=== PATIENT | male | born 1945 | race Caucasian/White ===

== ENCOUNTER 2024-09-10 20:48 | Outpatient (REF) | payer MEDICARE, SELFPAY ==
[2024-09-10 22:18] LABS: Abs Immature Grans 0.03 10^3/uL (0.0-0.06); Absolute Basophil Count 0.04 10^3/uL (0.0-0.2); Absolute Eosinophil Count 0.02 10^3/uL (0.0-0.7); Absolute Lymphocyte Count 0.75 10^3/uL (1.2-3.4); Absolute Monocyte Count 1.16 10^3/uL (0.1-0.8); Basophils % 0.4 %; Eosinophils % 0.2 %; HCT 43.3 % (40.0-50.0); HGB 14.4 g/dL (13.5-17.5); Immature Grans % 0.3 %; Lymphocytes % 6.8 %; MCH 30.7 pg (27.0-33.0); MCHC 33.3 % (32.0-36.0); MCV 92 fL (80-95); MPV 9.9 fL (8.0-11.0); Monocytes % 10.5 %; Neutrophils % 81.8 %; Platelet Count 229 10^3/uL (130-400); RBC 4.69 10^6/uL (4.36-5.78); RDW 13.4 % (11.8-14.1); RDW-SD 45.8 fL; WBC 11.03 10^3/uL (4.4-10.8)
[2024-09-10 22:25] LABS: Absolute Neutrophil Count 9.02 10^3/uL (1.2-6.7)
[2024-09-10 22:28] LABS: COVID-19 PCR Negative (Negative); Influenza A PCR Negative (Negative); Influenza B PCR Negative (Negative); RSV PCR Negative (Negative)
[2024-09-10 22:29] LABS: Source Nasopharynx
[2024-09-10 22:33] LABS: ALT 42 U/L (16-63); AST 25 U/L (15-37); Albumin 3.3 g/dL (3.4-5.0); Alkaline Phosphatase 124 U/L (46-116); Anion Gap 10.8 mmol/L (3-11); BUN 19 mg/dL (7-18); Bilirubin, Total 0.59 mg/dL (0.2-1.0); CO2 25.2 mmol/L (21.0-32.0); Chloride 103 mmol/L (98-107); Estimated GFR 77.04 (mL/min/1.73m2); Glucose 96 mg/dL (74-106); Potassium 4.6 mmol/L (3.5-5.1); Sodium 139 mmol/L (136-145); Total Protein 6.3 g/dL (6.4-8.2)
[2024-09-10 22:40] LABS: Bacteria Few HPF (Negative); C & S Indicated? C&S Done As Ordered; Crystals Negative HPF (Negative); Epithelial Cells Negative HPF (Negative); Mucus Moderate (Negative); RBC 0-2 HPF (0-2)
[2024-09-12 12:33] LABS: Lyme Ab w Rflx to Lyme Confirm Negative (Negative)
[2024-09-14 14:39] LABS: Anaplasma phagocytophilum Negative (Negative); B. miyamotoi PCR Negative (Negative); Babesia divergens/MO-1 Negative (Negative); Babesia duncani Negative (Negative); Babesia microti Negative (Negative); Ehrlichia chaffeensis Negative (Negative); Ehrlichia ewingii/canis Negative (Negative); Ehrlichia muris eauclairensis Negative (Negative)
== END 2024-09-10 20:49 | disposition home or self-care (01) ==
LOC: LBN 20:48
PROVIDERS: Visit Provider Nurse Practitioner Family
DX: R50.9 Fever, unspecified (principal)
CPT/HCPCS: 80053; 87637; 87798; 81015; 82043; 82570; 85025; 86618; 87086

== ENCOUNTER 2024-09-12 12:25 | Outpatient (CLI) | payer MEDICARE, SELFPAY ==
--- NOTE | 2024-09-12 | DI.US_ITS ---
Exam(s) US RENAL EXAM: US RENAL CLINICAL HISTORY: HEMATURIA R31.9 TECHNIQUE: Ultrasound of both kidneys performed using standard protocol. COMPARISON: No exams were available for comparison FINDINGS: RIGHT KIDNEY: Measures 12 cm in length. There are 2 adjacent cysts in the inferior pole region measuring 6 x 5.8 an d 3.6 x 2.7 cm. Normal cortical thickness and corticomedullary differentiation .No solid masses No intrarenal calculi nor hydronephrosis. LEFT KIDNEY: Measures 12 cm in length. No cysts evident. Normal cortical thickness and corticomedullary different iaion. No solids masses. No intrarenal calculi nor hydonephrosis. URINARY BLADDER: Prevoid volume is 125 cc Postvoid volume is 45 cc Bladder wall is minimally thickened No evidence of bladder mass nor diverticuli. Ureterovesical jets: Both identified and appear symmetrical IMPRESSION: 1. No significant ultrasound findings in the kidneys. There are 2 adjacent benign cyst in the infer ior pole region of the right kidney with measurements as above. There are no solid lesions in either kidney 2. No hydronephrosis. DATA REPOSITORY:
--- OUTSIDE RECORDS SUMMARY | 2024-09-12 12:27 | XMS_ITS | Clinical Summary ---
Author Organization [facility] Address [address] [place] [address] Care Team Providers Care Sewing Machine Operator Name Role Phone Unavailable Primary Care Provider Unavailabl e Encounters Date Type Department Care Team Description 09/11/2024 Lab Requisition [facility] Pathology & Laboratory Medicine - [facility] [address] [place] [address] Outr Resulting Lab, Provider from Last 3 Months Social History Tobacco Use Types Packs/Day Years Used Date Smoking Tobacco: Never Assessed Sex and Gender Information Value Date Recorded Sex Assigned at Not on file Gender Identity Not on file Sexual Orientation Not on file Plan of Treatment Not on file
--- OUTSIDE RECORDS SUMMARY | 2024-09-12 12:27 | XMS_ITS | Referral Summary ---
Author Organization [facility] Address [address] [place] [address] Care Team Providers Care Residential Support Specialist Name Role Phone Unavailable Primary Care Provider Unavailabl e Encounters Date Type Department Care Team Description 09/11/2024 Lab Requisition [facility] Pathology & Laboratory Medicine - [facility] [address] [place] [address] Outr Resulting Lab, Provider from Last 3 Months Social History Tobacco Use Types Packs/Day Years Used Date Smoking Tobacco: Never Assessed Sex and Gender Information Value Date Recorded Sex Assigned at Not on file Gender Identity Not on file Sexual Orientation Not on file Plan of Treatment Not on file
--- OUTSIDE RECORDS SUMMARY | 2024-09-12 12:27 | XMS_ITS | Encounter Summary ---
Author Organization [facility] Address [address] [place] [address] Care Team Providers Care Electrotyper Name Role Phone Unavailable Primary Care Provider Unavailabl e Encounter Details Date Type Department Care Team (Late st Contact Info) Description 09/11/2024 Lab Requisition [facility] Pathology & Laboratory Medicine - [facility] [address] [place] [address] Outr Resulting Lab, Provider Social History Tobacco Use Types Packs/Day Years Used Date Smoking Tobacco: Never Assessed Sex and Gender Information Value Date Recorded Sex Assigned at Not on file Gender Identity Not on file Sexual Orientation Not on file documented as of this encounter Plan of Treatment Pending Results Name Type Priority Associated Diagnoses Date /Time LYME AB Lab Routine 09/10/2024 19: 00 EDT documented as of this encounter Visit Diagnoses Not on filedocumented in this encounter
== END 2024-09-12 12:45 ==
PROVIDERS: Visit Provider Nurse Practitioner Family
DX: R31.9 Hematuria, unspecified (principal)
CPT/HCPCS: 76770

== ENCOUNTER 2024-09-14 12:31 | Outpatient (REF) | payer MEDICARE, SELFPAY ==
[2024-09-14 14:47] LABS: Abs Immature Grans 0.14 10^3/uL (0.0-0.06); Absolute Basophil Count 0.05 10^3/uL (0.0-0.2); Absolute Eosinophil Count 0.09 10^3/uL (0.0-0.7); Absolute Lymphocyte Count 1.03 10^3/uL (1.2-3.4); Absolute Monocyte Count 0.95 10^3/uL (0.1-0.8); Absolute Neutrophil Count 6.42 10^3/uL (1.2-6.7); Basophils % 0.6 %; HCT 42.8 % (40.0-50.0); HGB 14.1 g/dL (13.5-17.5); Immature Grans % 1.6 %; Lymphocytes % 11.9 %; MCH 30.7 pg (27.0-33.0); MCHC 32.9 % (32.0-36.0); MCV 93 fL (80-95); MPV 9.7 fL (8.0-11.0); Monocytes % 10.9 %; Platelet Count 273 10^3/uL (130-400); RDW 13.7 % (11.8-14.1); WBC 8.68 10^3/uL (4.4-10.8)
[2024-09-14 15:16] LABS: TSH 0.67 uIU/mL (0.36-3.74)
[2024-09-14 15:26] LABS: Bilirubin Negative (Negative); Blood Negative (Negative); Clarity Clear (Clear); Glucose Negative (Negative); Ketones Negative (Negative); Leukocyte Esterase Negative (Negative); Nitrite Negative (Negative); Urobilinogen 0.2 mg/dL (Up to 0.2); pH 6.5 (5-8)
[2024-09-14 22:16] LABS: T3,Free 4.2 pg/mL (2.8-5.3)
== END 2024-09-14 12:32 | disposition home or self-care (01) ==
LOC: NCHCN 12:31
PROVIDERS: PCP Nurse Practitioner Family; Visit Provider Nurse Practitioner Family
DX: R50.9 Fever, unspecified (principal)
CPT/HCPCS: 81003; 84154; 84439; 84443; 84481; 85025; 87086

== ENCOUNTER 2024-09-20 02:09 | Outpatient (CLI) | payer MEDICARE, SELFPAY ==
--- NOTE | 2024-09-20 | DI.US_ITS ---
APPROVED REPORT EXAM: Comprehensive 2D, Doppler, and color-flow Echocardiogram Patient Location: Out-Patient Cable Engineer Outside Plant: Scarlett Guillen RDCS (AE) Indications: Unspecified atrial fibrillation Other Information Study Quality: Adequate Conclusion Normal left ventricular wall thickness and chamber size. Ejection fraction is 55%. Wall motion is n ormal Normal right ventricular size and function Left atrium is mildly dilated. Right atrial size is normal Aortic valve is sclerotic and trileaflet. There is trace aortic regurgitation. Mean aortic valve gr adient is 8 mmHg, no hemodynamically significant aortic stenosis Mitral annular calcification. Mild mitral regurgitation Estimated right ventricular systolic pressure is 20 mmHg Ascending aorta measures 3.59 cm Wall motion Left Ventricle The left ventricle is normal size. The left ventricular systolic function is normal. The left ventric ular ejection fraction is within the normal range. There is normal left ventricular wall thickness. T here is normal LV segmental wall motion. There is no ventricular septal defect visualized. LVEF is 55 %. Right Ventricle The right ventricle is normal size. The right ventricular systolic function is normal. Atria Left atrium is mildly dilated. The right atrium size is normal. The interatrial septum is intact with no evidence for an atrial septal defect. Aortic Valve The Aortic valve is sclerotic. Aortic valve is trileaflet. There is no aortic valvular stenosis. Trac e aortic regurgitation. Mitral Valve Mild mitral annular calcification. No evidence of mitral valve stenosis. Mild mitral regurgitation. Tricuspid Valve The tricuspid valve is normal in structure. There is no tricuspid valve stenosis. Trace tricuspid reg urgitation. The RVSP is 20.5 mmHg. Pulmonic Valve The pulmonary valve is normal in structure. There is no pulmonic valvular stenosis. Trace pulmonic re gurgitation. Great Vessels The aortic root is normal in size. The ascending aorta is mildly dilated. Aortic arch is normal in ca liber. IVC is normal in size and collapses >50% with inspiration. Pericardium There is no pericardial effusion. 2D Dimensions IVSD d PLAX 0.92 cm M: 0.6-1.2 Ao Root d 3.00 cm M: 3.1 - 3.7 LVPW d PLAX 0.90 cm M: 0.6 - 1.2 Ao Asc Diam d 3.59 cm M: 2.6 - 3.4 LVID d PLAX 4.40 cm M: 4.2 - 5.8 LVDs 3.20 cm M: 2.5 - 4.0 LV EF Teichholz 54.0 % FS 27.72 % LV EDV (Teich) 87.5 mL LV ESV (Teich) 40.3 mL M-Mode TAPSE 2.23 cm (M/F) >1.7 Auto EF LV EDV A4C 122.8 mL LV EDV A2C 102.2 mL LV EDV BP 112.8 mL LV ESV A4C 61.5 mL LV ESV A2C 49.5 mL LV ESV BP 54.9 mL LVEF(%) A4C 49.9 % LVEF(%) A2C 51.6 % LVEF(%) BP 51.3 % LV SV A4C 61.3 ml LV SV A2C 52.7 ml LV SV BP 57.9 ml LV CO A4C 5.5 L/min LV CO A2C 5.4 L/min LV CO BP 5.5 L/min HR A4C 90.46 BPM HR A2C 102.56 BPM LV EDV Index (BP) LA Volume LA Length A4C 5.5 cm LA Length A2C 5.2 cm LA Area A4C s 21.27 cm2 LA Area A2C s 21.61 cm2 LA Vol A4C A-L 70.15 mL LA Vol A2C A-L 75.87 mL LA Vol Biplane A-L 74.7 mL LA Vol/BSA A4C A-L LA Vol/BSA A2C A-L LA Vol/BSA BP A-L 37.3 mL/m2 LA Vol A4C MOD 63.1 mL LA Vol A2C MOD 69.2 mL LA Vol BP MOD 67.3 mL RA Volume RA Area A4C 16.5 cm2 RA ESV A4C (A-L) 39.0mL RA Vol/BSA A4C A-L RA Length A4C 5.9 cm RA ESV A4C (MOD) 37.1mL LV Diastology MV E' medial 0.107 (>0.07 m/s) MV E Vmax 1.06 (0.4-1.3 m/s) MV E' lateral 0.107 (>0.1 m/s) Aortic Valve AoV Vmax 1.87 m/s LVOT Vmax 0.79 m/s AoV Peak Grad 41.5 mmHg LVOT Peak Grad 2.5 mmHg AoV Area (Vmax) 1.37 cm2 LVOT VTI 0.138 m AoV VTI 0.351 m LVOT Mean Grad 1.4 mmHg AoV Mean Jayme. 1.34 m/s LVOT SV 44.93 mL AoV Mean Grad 8.1 mmHg LVOT Diam s 2.00 cm AoV Area (VTI) 1.28 cm2 AV Regurg Peak Gr. 13.97 mmHg Velocity Ratio 0.42 AR Decel [place] 1.6m/sec2 AR DT 2597 msec AR PHT 753 msec AR Vmax 4.15 m/s Mitral Valve MV Vmax TIPS 1.14 m/s MV Mean Grad 2.3 (<2mmHg) MV Area PHT 4.10 cm2 MV VTI 0.235 m Pulmonary Valve PV Vmax 1.06 (0.5-1.5 m/s) RVOT Vmax 0.69 m/s PV Peak Grad 4.5 mmHg RVOT Peak Gr. 1.9 mmHg PV Mean Jayme 0.70 m/s RVOT VTI 0.128 m PV Mean Grad 2.3 mmHg RVOT Mean Gr. 1.2 mmHg Tricuspid Valve RA Pressure 3.00 mmHg TR Vmax 2.09 m/s TV S' 0.14 m/s TR Peak Grad 17.4 mmHg RVSP (TR) 20.5 mmHg
== END 2024-09-20 02:29 ==
LOC: DI 02:10
PROVIDERS: PCP Nurse Practitioner Family; Visit Provider Nurse Practitioner Family
DX: I48.91 Unspecified atrial fibrillation (principal)
CPT/HCPCS: 93306

== ENCOUNTER 2024-09-20 10:21 | Outpatient (CLI) | payer MEDICARE, SELFPAY | END 2024-09-20 10:22 | disposition home or self-care (01) | PROVIDERS: PCP Nurse Practitioner Family; Visit Provider Nurse Practitioner Family | DX: I48.0 Paroxysmal atrial fibrillation (principal) | CPT/HCPCS: 93246 ==

== ENCOUNTER 2024-09-21 16:24 | Outpatient (REF) | payer MEDICARE, SELFPAY ==
[2024-09-21 21:09] LABS: Microalb ug/mg Crea 15.9 ug/mg Cr
== END 2024-09-21 16:25 | disposition home or self-care (01) ==
LOC: NCHCN 16:24
PROVIDERS: PCP Nurse Practitioner Family; Visit Provider Family Medicine
DX: I10 Essential (primary) hypertension (principal)
CPT/HCPCS: 82043; 82570

== ENCOUNTER 2024-10-11 09:08 | Outpatient (CLI) | payer MEDICARE, SELFPAY ==
--- NOTE | 2024-10-11 09:29 | CER_ITS ---
Date of service: 10/11/24 Time of Service: 09:29 Cardiac Event Recorder Referring Provider:: Anneliese Benedict Indications:: Atrial fibrillation Cardiac Event Note: This is a cardiac event monitor. Patient was monitored for 14 days rhythm t hroughout was atrial fibrillation with an average heart rate of 96. Minimum was 60, maximum 170. There were very rare isolated ventricular ectopic beats. Patient symptoms were reported, correlating with atrial fibrillation rate approximately 115 There was no high-grade AV block, no significant pauses
== END 2024-10-11 09:09 | disposition home or self-care (01) ==
LOC: CARDOPNVT 09:08
PROVIDERS: PCP Nurse Practitioner Family; Visit Provider Internal Medicine Cardiovascular Disease
DX: I48.91 Unspecified atrial fibrillation (principal)
CPT/HCPCS: 93248

== ENCOUNTER → 2024-10-23 14:01 | Outpatient (BNVA) | payer MEDICARE, SELFPAY | PROVIDERS: PCP Nurse Practitioner Family; Referring Provider Nurse Practitioner Family; Visit Provider Urology | DX: N40.1 Benign prostatic hyperplasia with lower urinary tract symptoms (principal); R39.15 Urgency of urination; E29.1 Testicular hypofunction; R97.20 Elevated prostate specific antigen [PSA] | CPT/HCPCS: 99215 ==

== ENCOUNTER 2024-11-29 16:16 | Outpatient (REF) | payer MEDICARE, SELFPAY ==
[2024-11-29 16:47] LABS: TSH (W/Ref FT4) 2.21 uIU/mL (0.36-3.74)
[2024-11-30 18:40] LABS: PSA, Diagnostic 14.2 ng/mL (<=6.5)
== END 2024-11-29 16:17 | disposition home or self-care (01) ==
LOC: NCHCN 16:16
PROVIDERS: PCP Nurse Practitioner Family; Visit Provider Family Medicine
DX: E03.9 Hypothyroidism, unspecified (principal); R97.20 Elevated prostate specific antigen [PSA]
CPT/HCPCS: 84153; 84443

== ENCOUNTER 2024-12-28 08:06 | Outpatient (CLI) | payer MEDICARE, SELFPAY ==
--- NOTE | 2024-12-28 08:00 | RT.EKG_ITS ---
APPROVED REPORT Exam: Resting ECG Reason for Exam: cardiac evaluation Patient Location: O HR:91 bpm ECG Measurements Heart Rate [address] MO [id number] P [id number] QRSd 93 QRS -13 QT 344 T 8 QTc 424 Conclusion Atrial fibrillation...V-rate 70-107, irreg A-activity
== END 2024-12-28 08:07 | disposition home or self-care (01) ==
LOC: DI.CARD 08:07
PROVIDERS: PCP Nurse Practitioner Family; Visit Provider Internal Medicine Cardiovascular Disease
DX: I10 Essential (primary) hypertension (principal); I48.91 Unspecified atrial fibrillation; E78.5 Hyperlipidemia, unspecified
CPT/HCPCS: 93010

== ENCOUNTER → 2024-12-28 12:59 | Outpatient (BNVA) | payer MEDICARE, SELFPAY | PROVIDERS: PCP Nurse Practitioner Family; Referring Provider Nurse Practitioner Family; Visit Provider Internal Medicine Cardiovascular Disease | DX: I48.19 Other persistent atrial fibrillation (principal) | CPT/HCPCS: 93005; 99214 ==

== ENCOUNTER 2025-01-14 10:21 | Inpatient (IN) | payer MEDICARE, SELFPAY ==
[2025-01-14] VITALS (38 sets, daily range): BP systolic 116–169; BP diastolic 68–116; PULSE 72–99; RESP 11–24; TEMP 36.9–37.3; O2SAT 93–98
--- NOTE | 2025-01-14 10:15 | RT.EKG_ITS ---
APPROVED REPORT Exam: Resting ECG Reason for Exam: chest pressure Patient Location: E HR:87 bpm ECG Measurements Heart Rate 87 [address] VT [id number] P [id number] QRSd 97 QRS -12 QT 337 T 0 QTc 405 Conclusion Atrial fibrillation 87 ST elevation III, AVF no stemi
--- NOTE | 2025-01-14 10:30 | DI.RAD_ITS ---
Exam(s) XR PORTABLE CHEST AP EXAM: XR PORTABLE CHEST AP CLINICAL HISTORY: Chest pain TECHNIQUE: 2D digital imaging was performed. COMPARISON: No exams were available for comparison FINDINGS: LUNGS: Clear. No pleural abnormality seen. HEART: Mildly enlarged. AORTA: Normal diameter. BONES: Unremarkable for age. Soft tissues: Unremarkable. IMPRESSION: No acute findings. DATA REPOSITORY: RADIATION DOSE DELIVERED:
[2025-01-14 10:47] LABS: Abs Immature Grans 0.04 10^3/uL (0.0-0.06); Absolute Basophil Count 0.02 10^3/uL (0.0-0.2); Absolute Eosinophil Count 0.03 10^3/uL (0.0-0.7); Absolute Lymphocyte Count 1.76 10^3/uL (1.2-3.4); Absolute Monocyte Count 0.75 10^3/uL (0.1-0.8); Basophils % 0.2 %; Eosinophils % 0.3 %; HCT 46.3 % (40.0-50.0); HGB 15.7 g/dL (13.5-17.5); Immature Grans % 0.5 %; Lymphocytes % 20.2 %; MCH 30.7 pg (27.0-33.0); MCHC 33.9 % (32.0-36.0); MCV 91 fL (80-95); MPV 9.5 fL (8.0-11.0); Monocytes % 8.6 %; Neutrophils % 70.2 %; Platelet Count 232 10^3/uL (130-400); RBC 5.11 10^6/uL (4.36-5.78); RDW 13.9 % (11.8-14.1); RDW-SD 46.6 fL
[2025-01-14 11:10] LABS: ALT 46 U/L (16-63); AST 85 U/L (15-37); Albumin 3.6 g/dL (3.4-5.0); Alkaline Phosphatase 72 U/L (46-116); Anion Gap 6.7 mmol/L (3-11); BUN 14 mg/dL (7-18); Bilirubin, Total 0.73 mg/dL (0.2-1.0); CO2 29.3 mmol/L (21.0-32.0); Calcium 9.1 mg/dL (8.5-10.1); Chloride 104 mmol/L (98-107); Estimated GFR 76.56 (mL/min/1.73m2); Glucose 101 mg/dL (74-106); NT-proBNP 1020 pg/mL (<300); Potassium 4.1 mmol/L (3.5-5.1); Sodium 140 mmol/L (136-145); Total Protein 6.8 g/dL (6.4-8.2)
[2025-01-14 11:11] LABS: Troponin I 7995 ng/L (<or=76)
[2025-01-14] MEDS: Clopidogrel 300 MG TAB PO (11:44)
[2025-01-14] MEDS: Heparin in 0.45% NaCl 25,000 UNIT/250 ML BAG 10 UNIT IVINF (11:45)
[2025-01-14 11:53] LABS: INR 1.1 (0.9-1.1); PTT Activated 28.1 sec (20.6-30.2); Prothrombin Time 10.9 sec (9.1-11.1)
[2025-01-14 12:03] LABS: Troponin I 8540 ng/L (<or=76)
[2025-01-14] MEDS: Metoprolol 12.5 MG TAB PO (12:06)
[2025-01-14] MEDS: Aspirin 325 MG TAB PO (12:06)
[2025-01-14] MEDS: Atorvastatin 40 MG TAB 80 MG PO (12:08)
[2025-01-14 12:59] LABS: TSH 0.92 uIU/mL (0.36-3.74)
--- NOTE | 2025-01-14 14:01 | W.PC.ACHO ---
Registration Status: Primary Language: Preferred Language: ED Information & Data Chief Complaint Chest Pain 01/14/25 10:49 Chief Complaint Chest Pain 01/14/25 10:27 Triage Note pt felt chest pressure, back 01/14/25 10:27 pain and a sensation in right arm yesterday after anabaptist. today no s/s. hx afib. Medical / Surgical History (Last Reviewed 12/28/24 @ 13:10 by Lou Tidwell MD) Fever Asymptomatic microscopic hematuria Hypogonadism in male Constipation (Last Reviewed 12/28/24 @ 13:10 by Lou Tidwell MD) S/P hip replacement History of bilateral knee replacement Most Recent Vital Signs Temperature 36.9 C 01/14/25 10:27 Pulse 88 01/14/25 13:00 Pulse 78 01/14/25 13:30 Respiratory Rate 14 01/14/25 13:30 Respiratory Effort Normal 01/14/25 10:49 Respiratory Depth Normal 01/14/25 10:49 Respiratory Pattern Normal 01/14/25 10:49 Blood Pressure 169/86 H 01/14/25 12:16 Blood Pressure Mean 114 01/14/25 12:16 Pulse Oximetry 96 01/14/25 13:00 Oxygen Delivery Method Room Air 01/14/25 10:27 Oxygen Flow Rate 0 01/14/25 10:27 Pain Level 0 01/14/25 13:39 Allergies atorvastatin (From Lipitor) Allergy (Verified 01/14/25 11:06) Other (See Comment) muscle cramping Active Medications Generic Name Dose Route Start Last Admin Trade Name Freq PRN Reason Stop Dose Admin Heparin Sodium/Sodium Chloride 25,000 unit in 250 mls @ 10 mls/hr 01/14/25 11:30 01/14/25 11:45 IVINF 1,000 units/hr INFUSION VAUGHN 10 mls/hr Administration Protocol 1,000 UNITS/HR Metoprolol Tartrate 12.5 mg 01/14/25 12:00 01/14/25 12:06 Metoprolol 12.5 Mg Tab PO 12.5 mg Q6H VAUGHN Administration IV IV Catheter Type [Left Saline Lock Antecubital] IV Catheter Gauge [Left 18 Antecubital] Diet Orders Category Date Time Status Heart Healthy Eating [DIET] Nutrition 01/14/25 Dinner Active Diagnostics 01/14/25 01/14/25 01/14/25 Range/Units 13:27 11:35 10:40 WBC 8.70 (4.4-10.8) 10^3/uL RBC 5.11 (4.36-5.78) 10^6/uL Hgb 15.7 (13.5-17.5) g/dL Hct 46.3 (40.0-50.0) % MCV 91 (80-95) fL MCH 30.7 (27.0-33.0) pg MCHC 33.9 (32.0-36.0) % RDW 13.9 (11.8-14.1) % Plt Count 232 (130-400) 10^3/uL MPV 9.5 (8.0-11.0) fL Immature Gran % 0.5 % Neutrophils % 70.2 % Lymphocytes % 20.2 % Monocytes % 8.6 % Eosinophils % 0.3 % Basophils % 0.2 % Nucleated RBC % 0.0 (0.0-0.3) % Absolute Neutrophils 6.10 (1.2-6.7) 10^3/uL Absolute Lymphocytes 1.76 (1.2-3.4) 10^3/uL Absolute Monocytes 0.75 (0.1-0.8) 10^3/uL Absolute Eosinophils 0.03 (0.0-0.7) 10^3/uL Absolute Basophils 0.02 (0.0-0.2) 10^3/uL PT 10.9 (9.1-11.1) sec INR 1.1 (0.9-1.1) APTT 28.1 (20.6-30.2) sec Sodium 140 (136-145) mmol/L Potassium 4.1 (3.5-5.1) mmol/L Chloride 104 (98-107) mmol/L Carbon Dioxide 29.3 (21.0-32.0) mmol/L Anion Gap 6.7 (3-11) mmol/L BUN 14 (7-18) mg/dL Creatinine 1.0 (0.70-1.30) mg/dL Est GFR (CKD-EPI 2020) 76.56 (mL/min/1.73m2) Glucose 101 (74-106) mg/dL Calcium 9.1 (8.5-10.1) mg/dL Total Bilirubin 0.73 (0.2-1.0) mg/dL AST 85 H (15-37) U/L ALT 46 (16-63) U/L Alkaline Phosphatase 72 (46-116) U/L Troponin I Pending 8540 H* 7995 H* (<or=76) ng/L NT-Pro-B Natriuret Pep 1020 H (<300) pg/mL Total Protein 6.8 (6.4-8.2) g/dL Albumin 3.6 (3.4-5.0) g/dL TSH 0.92 (0.36-3.74) uIU/mL Intake and Output - 24 Hour Total 01/14/25 10:21 thru 01/14/25 10:27 Weight 86.183 kg Falls Risk Assessment History of Falls No History 01/14/25 10:49 Contributing Factors No Factors 01/14/25 10:49 Ambulatory Aids Independent 01/14/25 10:49 Tubes/Lines None 01/14/25 10:49 Gait Evaluation No gait disturbance 01/14/25 10:49 Cognition No cognitive impairment 01/14/25 10:49 Fall Total Score 0 01/14/25 10:49 Level of Risk Standard/Low Risk 01/14/25 10:49 v v v v v v v v v Sending and/or Receiving Nurses: Please use comment section below to note any information pertinent to the patient hand-off not included above. Information / Comments: Report received from: Ronda Gonzalez RN All questions answered
[2025-01-14 14:14] LABS: Troponin I 10272 ng/L (<or=76)
--- NOTE | 2025-01-14 16:10 | ED.GENADUL_ITS ---
Discharge Plan Disposition Patient Disposition: Admit to [facility] Condition: Serious Discharge Details Chief Complaint: Chest Pain Clinical Impression: Acute non-ST elevation myocardial infarction (NSTEMI), A-fib, Essential hypertension, Chronic anticoagulation Admit Date/Time: 01/14/25 12:04 Admit Provider: Emeka Dietz Attending Provider: Emeka Dietz Primary Care Provider: Lata Harkins ED Provider: Grecia Morgan Discharge Data Discharge Date/Time-TO BE ENTERED AT DEPARTURE: 01/14/25 14:18 HPI General Date/Time Provider Initiated Documentation: 01/14/25 10:31 . Limitations to Documentation: no limitations . Information obtained by: patient . HPI Narrative: 79-year-old gentleman with past medical history of A-fib on Eliquis, hypertension presents for evaluation of chest pain. He reports that yesterday after restorationism he noted some substernal discomfort. It did not seem to bother him too much. He did some cross-country skiing in the afternoon. He reports that he seemed very winded more so than to be expected where he has had previously. He also had worsening of this substernal chest pain. He reports that it bothered him throughout the night and kept him awake. He kept trying to sit up because he thought that he had some indigestion. He reports that around 3 AM it went away. Since that time he has not had shortness of breath. Denies smoking history, denies DE history, denies diabetes. Related Data Home Medications ?Medication ?Instructions ?Recorded ?Confirmed Bacillus coagulans 10 billion cell 1 cell PO DAILY 09/19/24 01/14/25 capsule,delayed release (Probiotic (B. coagulans)) acetaminophen 500 mg capsule 1,000 mg PO ONCE PRN 09/19/24 01/14/25 amlodipine 5 mg tablet 5 mg PO DAILY 09/19/24 01/14/25 apixaban 5 mg tablet (Eliquis) 5 mg PO BID 09/19/24 01/14/25 cholecalciferol (vitamin D3) 25 25 mcg PO DAILY 09/19/24 01/14/25 mcg (1,000 unit) capsule coenzyme Q10 300 mg capsule (Co 300 mg PO DAILY 09/19/24 01/14/25 Q-10) glucosamine 750 zn-dwwlyvqkice-txx 1 tab PO DAILY 09/19/24 01/14/25 no1 625 mg-C 30 mg-jacob 1 mg tablet losartan 50 mg tablet 50 mg PO DAILY 09/19/24 01/14/25 multivitamin 1 tab PO DAILY 09/19/24 01/14/25 omega 2-tvh-vpa-fish oil 100 1 cap PO DAILY 09/19/24 01/14/25 mg-160 mg-1,000 mg capsule (Fish Oil) omeprazole 20 mg capsule,delayed 20 mg PO DAILY 09/19/24 01/14/25 release polyethylene glycol 3350 17 17 g PO DAILY 09/19/24 01/14/25 gram/dose oral powder (Miralax) prasterone (dhea) 25 mg tablet 25 mg PO DAILY 09/19/24 01/14/25 (DHEA) psyllium husk 0.52 gram capsule 0.52 g PO DAILY 09/19/24 01/14/25 rosuvastatin 40 mg tablet 40 mg PO DAILY 09/19/24 01/14/25 tadalafil 5 mg tablet 5 mg PO DAILY 09/19/24 01/14/25 tamsulosin 0.4 mg capsule 0.8 mg PO DAILY 09/19/24 01/14/25 testosterone cypionate 100 mg/mL 40 mg IM Q4W 09/19/24 01/14/25 intramuscular oil thyroid (pork) 90 mg tablet 90 mg PO DAILY 09/19/24 01/14/25 ([place] Thyroid) metoprolol tartrate 25 mg tablet 25 mg PO DAILY 10/23/24 01/14/25 docusate sodium 100 mg capsule 100 mg PO DAILY 12/28/24 01/14/25 Allergies Allergy/AdvReac Type Severity Reaction Status Date / Time atorvastatin (From Lipitor) Allergy Other (See Verified 01/14/25 11:06 Comment) General Stated Complaint: Chest Pain MARIA ELENA: 2 Exam Narrative Exam Narrative: Review of Systems: All systems reviewed & are unremarkable except as noted in HPI and below Well-developed, no acute distress NCAT PERRL, normal conjunctiva RRR no chest wall tenderness Unlabored respiratory effort clear bilaterally no crackles Nondistended abdomen Extremities w/o edema No rashes or lesions. no focal neurologic deficits Appropriate mood and affect Course Vital Signs Vital signs: Vital Signs Respiratory Rate 15 01/14/25 10:26 Temperature 37.0 C 01/14/25 14:30 Pulse 88 01/14/25 13:00 Pulse 78 01/14/25 13:30 Respiratory Rate 14 01/14/25 13:30 Respiratory Effort Normal, Non-Labored 01/14/25 14:30 Respiratory Depth Normal 01/14/25 14:30 Respiratory Pattern Normal 01/14/25 14:30 Blood Pressure 169/86 H 01/14/25 12:16 Blood Pressure Mean 114 01/14/25 12:16 Pulse Oximetry 96 01/14/25 13:00 Oxygen Delivery Method Room Air 01/14/25 10:27 Oxygen Flow Rate 0 01/14/25 10:27 Pain Level 0 01/14/25 14:30 Lab/Test Results Lab/Test Results: Laboratory Tests Range/Units 01/14/25 01/14/25 10:40 11:35 WBC (4.4-10.8) 10^3/uL 8.70 RBC (4.36-5.78) 10^6/uL 5.11 Hgb (13.5-17.5) g/dL 15.7 Hct (40.0-50.0) % 46.3 MCV (80-95) fL 91 MCH (27.0-33.0) pg 30.7 MCHC (32.0-36.0) % 33.9 RDW (11.8-14.1) % 13.9 Plt Count (130-400) 10^3/uL 232 MPV (8.0-11.0) fL 9.5 Immature Gran % % 0.5 Neutrophils % % 70.2 Lymphocytes % % 20.2 Monocytes % % 8.6 Eosinophils % % 0.3 Basophils % % 0.2 Nucleated RBC % (0.0-0.3) % 0.0 Absolute Neutrophils (1.2-6.7) 10^3/uL 6.10 Absolute Lymphocytes (1.2-3.4) 10^3/uL 1.76 Absolute Monocytes (0.1-0.8) 10^3/uL 0.75 Absolute Eosinophils (0.0-0.7) 10^3/uL 0.03 Absolute Basophils (0.0-0.2) 10^3/uL 0.02 PT (9.1-11.1) sec 10.9 INR (0.9-1.1) 1.1 APTT (20.6-30.2) sec 28.1 Sodium (136-145) mmol/L 140 Potassium (3.5-5.1) mmol/L 4.1 Chloride (98-107) mmol/L 104 Carbon Dioxide (21.0-32.0) mmol/L 29.3 Anion Gap (3-11) mmol/L 6.7 BUN (7-18) mg/dL 14 Creatinine (0.70-1.30) mg/dL 1.0 Est GFR (CKD-EPI 2020) (mL/min/1.73m2) 76.56 Glucose (74-106) mg/dL 101 Calcium (8.5-10.1) mg/dL 9.1 Total Bilirubin (0.2-1.0) mg/dL 0.73 AST (15-37) U/L 85 H ALT (16-63) U/L 46 Alkaline Phosphatase (46-116) U/L 72 Troponin I (<or=76) ng/L 7995 H* 8540 H* NT-Pro-B Natriuret Pep (<300) pg/mL 1020 H Total Protein (6.4-8.2) g/dL 6.8 Albumin (3.4-5.0) g/dL 3.6 TSH (0.36-3.74) uIU/mL 0.92 Medical Decision Making Emergent evaluation of chest pain. Patient has some risk factors including age, hypertension. He does have a history of A-fib and is on Eliquis. He is history is very concerning for an exertional chest pain, his initial EKG was in dependently interpreted: A-fib 87 ST elevations in leads III and aVF, no recip rocal change, no STEMI. The patient was given a full dose aspirin. He does not have any chest pain at this time and has not had any chest pain since 3 AM. High suspicion for cardiac etiology based on his history. Placed on telemetry monitoring. Lab work obtained. No leukocytosis or anemia. Coag factors within normal limits. No electrolyte derangement. His initial BNP was noted to be over 1000. The patient does not have any signs or symptoms concerning for volume overload or acute CHF. No prior history of CHF no available echocardiogram to me. The chest x-ray was reviewed and interpreted, no cardiomegaly pulmonary edema or pleural effusion. The initial troponin level was significantly elevated at 7995. When the troponin level resulted, I initiated Plavix load, high-dose statin, heparin infusion. The patient has not had any persistent return of chest pain. Repeat troponin delta increasing to 8540. An emergent consultation was had with cardiology at [facility]. [facility] does have concerns for the patient and has accepted him as a transfer admission for tomorrow when bed is available for cardiac catheterization. They recommend continued medical management and trending troponins until the patient is able to be transferred for cardiac catheterization. Given that he will not be able to go to [facility] until tomorrow, I have discussed with the hospitalist to keep the patient at this facility until the time of transfer for further management. After the patient had been moved to the ICU, his troponin resulted at 10, 272. Given the significant delta, I did reach back out to cardiology to notify them of this change and also notify the hospitalist. From this point they will be able to manage further disposition. Quality:SDOH Health Related Social Needs: No Data to Display Critical Care Time Critical Care Time Critical Care Time: Yes Total Critical Care Time: 36 Attestation: CRITICAL CARE Upon my evaluation, this patient had a high probability of imminent or life- threatening deterioration due to NSTEMI which required my direct attention, intervention, and personal management. I have personally provided 36 minutes of critical care time exclusive of time spent on separately billable procedures. Time includes review of laboratory data, radiology results, discussion with consultants, and monitoring for potential decompensation. Interventions were performed as documented above [facility] All Active Problems (Updated 01/14/25 @ 16:17 by Grecia Morgan MD) Chronic anticoagulation (Acute) Acute non-ST elevation myocardial infarction (NSTEMI) (Acute) Vitamin D deficiency (Acute) Erectile dysfunction (Acute) Elevated PSA (Acute) GUNNAR (obstructive sleep apnea) (Chronic) Nonulcer dyspepsia (Acute) Lower urinary tract symptoms (LUTS) (Acute) Pain in pelvis (Acute) Hyperlipidemia (Acute) Essential hypertension (Acute) A-fib (Chronic) Hypothyroidism (Chronic) Hypoalbuminemia (Acute) Medical History Fever Asymptomatic microscopic hematuria Hypogonadism in male Constipation Surgical History S/P hip replacement History of bilateral knee replacement Social History Smoking/Tobacco Use Status: Never Smoking risk assessment performed?: Yes Alcohol Intake: current Alcohol Intake frequency: a few times a month Drug use: Never Substance use type: does not use Housing: house Do you feel safe at home: Yes Do you feel safe in your relationship?: Yes PAWSS Have you Been Recently Intoxicated or Drunk Within the Last 30 days?: No Have you Ever Experienced Previous Episodes of Alcohol Withdrawal?: No Have you ever Experienced Withdrawal Seizures?: No Have you ever Experienced Delirium Tremens(DT)s?: No Have you ever Experienced Blackouts?: No Have you ever Combined Alcohol with other Downers within the last 90 days?: No Have you ever Combined Alcohol with any other Substance of Abuse during the last 90 days?: No Positive Blood Alcohol level on Presentation? [PCS.BAL]: No Evidence of Increased Autonomic Activity (i.e. HR>120, tremor, sweating, agitation, nausea)?: No Result: 0
--- NOTE | 2025-01-14 17:10 | W.PM.HP.N ---
Date of service: 01/14/25 Time of Service: 17:11 Assessment and Plan Assessment and plan (1) Acute non-ST elevation myocardial infarction (NSTEMI): Status: Acute Assessment and plan: - admit to ICU - trend troponins, already positive and climbing. however, patient currently hemodynamically stable and asymptomatic - heparin gtt started in ER - ASA 325mg given in ER, continue at 81mg. Plavix 300mg load given in ER - continue Lopressor 25mg PO BID - check fasting lipids, TSH - patient has already been accepted [place] [facility] [place], call transfer center if patient's consider changes for potential expedited transfer (2) A-fib: Status: Chronic Assessment and plan: - currently in NSR - Eliquis held for now while on heparin gtt (3) Hyperlipidemia: Status: Acute Assessment and plan: - check FLP as noted above - continue Crestor 40mg PO daily (4) Essential hypertension: Status: Acute Assessment and plan: - continue outpatient meds as ordered ---> amlodipine 5mg daily, losartan 50mg - metoprolol 25mg BID History of Present Illness History of Present Illness Chief Complaint: chest pain Narrative: This is a 79 yo male with pmhx HTN, hyperlipidemia, rate controlled AF on Eliquis, GERD, ED that presents c/o CP. Patient was seen in ICU with present, both are pleasant and good historians. Patient states he woke up yesterday feeling well, attending [employer] but felt poorly after that. Had marked fatigue along with some vague substernal chest pressure. Denies SOB, palpitations, diaphoresis. [place] that this may have been reflux. He did feel better and went cross-country skiing but again noted weakness and fatigue. Again this resolved after the activity. However, the next morning he woke up and felt that all these symptoms had returned, prompting him to present to the ER. At the time of my evaluation, he was completely asymptomatic. Review of Systems Constitutional Constitutional: Denies daytime sleepiness, Denies excessive sweating, Reports fatigue, Denies fever(s), Denies frequent falls, Denies headache(s), Denies increased appetite, Reports lethargy, Denies night sweats and Reports weakness ENT Ears, Nose, Mouth, and Throat: Denies dysphagia and Denies headache(s) Cardiovascular Cardiovascular: Reports chest pain, Denies pedal edema, Denies edema, Denies claudication, Denies leg edema, Denies lightheadedness, Denies dyspnea and Denies dyspnea on exertion Respiratory Respiratory: Denies cough, Denies dyspnea and Denies dyspnea on exertion Gastrointestinal Gastrointestinal: Denies abdominal pain, Denies change in stool character, Denies constipation, Denies dysphagia, Denies dyspepsia and Denies heartburn Musculoskeletal Musculoskeletal: Reports system reviewed and no additional complaints, except as documented Neurologic Neurologic: Reports system reviewed and no additional complaints, except as documented, Denies frequent falls, Denies headache(s) and Reports weakness Psychiatric Psychiatric: Reports system reviewed and no additional complaints, except as documented Endocrine Endocrine: Denies excessive sweating and Reports fatigue PFSH All Active Problems (Updated 01/14/25 @ 16:17 by Grecia Morgan MD) Chronic anticoagulation (Acute) Acute non-ST elevation myocardial infarction (NSTEMI) (Acute) Vitamin D deficiency (Acute) Erectile dysfunction (Acute) Elevated PSA (Acute) GUNNAR (obstructive sleep apnea) (Chronic) Nonulcer dyspepsia (Acute) Lower urinary tract symptoms (LUTS) (Acute) Pain in pelvis (Acute) Hyperlipidemia (Acute) Essential hypertension (Acute) A-fib (Chronic) Hypothyroidism (Chronic) Hypoalbuminemia (Acute) Medical History Fever Asymptomatic microscopic hematuria Hypogonadism in male Constipation Surgical History S/P hip replacement History of bilateral knee replacement Social History Smoking/Tobacco Use Status: Never Smoking risk assessment performed?: Yes Alcohol Intake: current Alcohol Intake frequency: a few times a month Drug use: Never Substance use type: does not use Housing: house Do you feel safe at home: Yes Do you feel safe in your relationship?: Yes Meds Allergies and Home Medications Allergies Allergy/AdvReac Type Severity Reaction Status Date / Time atorvastatin (From Lipitor) Allergy Other (See Verified 01/14/25 11:06 Comment) Home Medications ?Medication ?Instructions ?Recorded ?Confirmed ?Type Bacillus coagulans 10 billion cell 1 cell PO DAILY 09/19/24 01/14/25 History capsule,delayed release (Probiotic (B. coagulans)) acetaminophen 500 mg capsule 1,000 mg PO ONCE PRN 09/19/24 01/14/25 History amlodipine 5 mg tablet 5 mg PO DAILY 09/19/24 01/14/25 History apixaban 5 mg tablet (Eliquis) 5 mg PO BID 09/19/24 01/14/25 History cholecalciferol (vitamin D3) 25 25 mcg PO DAILY 09/19/24 01/14/25 History mcg (1,000 unit) capsule coenzyme Q10 300 mg capsule (Co 300 mg PO DAILY 09/19/24 01/14/25 History Q-10) glucosamine 750 un-edoygywszpn-wov 1 tab PO DAILY 09/19/24 01/14/25 History no1 625 mg-C 30 mg-jacob 1 mg tablet losartan 50 mg tablet 50 mg PO DAILY 09/19/24 01/14/25 History multivitamin 1 tab PO DAILY 09/19/24 01/14/25 History omega 6-tqe-fmv-fish oil 100 1 cap PO DAILY 09/19/24 01/14/25 History mg-160 mg-1,000 mg capsule (Fish Oil) omeprazole 20 mg capsule,delayed 20 mg PO DAILY 09/19/24 01/14/25 History release polyethylene glycol 3350 17 17 g PO DAILY 09/19/24 01/14/25 History gram/dose oral powder (Miralax) prasterone (dhea) 25 mg tablet 25 mg PO DAILY 09/19/24 01/14/25 History (DHEA) psyllium husk 0.52 gram capsule 0.52 g PO DAILY 09/19/24 01/14/25 History rosuvastatin 40 mg tablet 40 mg PO DAILY 09/19/24 01/14/25 History tadalafil 5 mg tablet 5 mg PO DAILY 09/19/24 01/14/25 History tamsulosin 0.4 mg capsule 0.8 mg PO DAILY 09/19/24 01/14/25 History testosterone cypionate 100 mg/mL 40 mg IM Q4W 09/19/24 01/14/25 History intramuscular oil thyroid (pork) 90 mg tablet 90 mg PO DAILY 09/19/24 01/14/25 History ([place] Thyroid) metoprolol tartrate 25 mg tablet 25 mg PO DAILY 10/23/24 01/14/25 History docusate sodium 100 mg capsule 100 mg PO DAILY 12/28/24 01/14/25 History Exam Const General: cooperative, healthy appearing, comfortable and no acute distress Nutritional Appearance: average body habitus [facility] Head: normocephalic and atraumatic Neck Neck: normal visual inspection Chest Chest: normal inspection of the chest Resp Effort & Inspection: normal respiratory effort Auscultation: clear to auscultation bilaterally, no rales, no rhonchi and no wheezes Cardio Jugular venous pressure: no JVD Rate: regular rate Rhythm: regular rhythm Heart Sounds: S1 normal and S2 normal GI Inspection: normal to inspection Palpation: soft Percussion: normal to percussion Auscultation: normal bowel sounds Skin General skin exam: no rashes or lesions noted Neuro General: patient alert, patient awake and patient oriented x3 Results Labs 01/14/25 10:40 01/14/25 10:40 Labs: Laboratory Results - last 24 hr 01/14/25 01/14/25 01/14/25 10:40 11:35 13:27 WBC 8.70 RBC 5.11 Hgb 15.7 Hct 46.3 MCV 91 MCH 30.7 MCHC 33.9 RDW 13.9 Plt Count 232 MPV 9.5 Immature Gran % 0.5 Neutrophils % 70.2 Lymphocytes % 20.2 Monocytes % 8.6 Eosinophils % 0.3 Basophils % 0.2 Nucleated RBC % 0.0 Absolute Neutrophils 6.10 Absolute Lymphocytes 1.76 Absolute Monocytes 0.75 Absolute Eosinophils 0.03 Absolute Basophils 0.02 PT 10.9 INR 1.1 APTT 28.1 Sodium 140 Potassium 4.1 Chloride 104 Carbon Dioxide 29.3 Anion Gap 6.7 BUN 14 Creatinine 1.0 Est GFR (CKD-EPI 2020) 76.56 Glucose 101 Calcium 9.1 Total Bilirubin 0.73 AST 85 H ALT 46 Alkaline Phosphatase 72 Troponin I 7995 H* 8540 H* 11837 H* NT-Pro-B Natriuret Pep 1020 H Total Protein 6.8 Albumin 3.6 TSH 0.92 Last Vital Signs Temp 37.0 C 01/14/25 14:30 Pulse 92 H 01/14/25 15:01 Resp 18 01/14/25 15:01 BP 122/77 01/14/25 15:01 Pulse Ox 96 01/14/25 15:01 PAWSS Have you Been Recently Intoxicated or Drunk Within the Last 30 days?: No Have you Ever Experienced Previous Episodes of Alcohol Withdrawal?: No Have you ever Experienced Withdrawal Seizures?: No Have you ever Experienced Delirium Tremens(DT)s?: No Have you ever Experienced Blackouts?: No Have you ever Combined Alcohol with other Downers within the last 90 days?: No Have you ever Combined Alcohol with any other Substance of Abuse during the last 90 days?: No Positive Blood Alcohol level on Presentation? [PCS.BAL]: No Evidence of Increased Autonomic Activity (i.e. HR>120, tremor, sweating, agitation, nausea)?: No Result: 0 Time Spent Time spent with Patient: <40 minutes Time was spent: preparing to see the patient(eg.review tests), obtaining and/or reviewing separately otained hiistory, ordering medications,tests, procedures, indepentently interpreting results, counseling the patient and care coordination
--- NOTE | 2025-01-14 18:15 | RT.EKG_ITS ---
APPROVED REPORT Exam: Resting ECG Reason for Exam: chest pain Patient Location: I HR:84 bpm ECG Measurements Heart Rate 84 AXIS MT [id number] P [id number] QRSd 92 QRS -12 QT 374 T 27 QTc 443 Conclusion Atrial fibrillation...V-rate 64-101, irreg A-activity Borderline ST elevation, anterior leads...ST >0.15mV in V1-V4
[2025-01-14 19:29] LABS: PTT Activated 95.2 sec (20.6-30.2)
[2025-01-14] MEDS: Metoprolol 25 MG TAB PO (19:49)
[2025-01-14] MEDS: Normal Saline Flush 10 ML SYR IVP (19:49)
[2025-01-14 21:14] LABS: Troponin I 13616 ng/L (<or=76)
[2025-01-14] MEDS: Acetaminophen 325 MG TAB PO (22:15)
[2025-01-15 01:15] LABS: Troponin I 15102 ng/L (<or=76)
[2025-01-15 02:13] LABS: PTT Activated 48.8 sec (20.6-30.2)
[2025-01-15 03:31] VITALS: BP 133/76; PULSE 70; RESP 19; TEMP 36.6; O2SAT 91
[2025-01-15] MEDS: Heparin in 0.45% NaCl 25,000 UNIT/250 ML BAG 10 UNIT IVINF (06:33)
[2025-01-15 07:04] LABS: Abs Immature Grans 0.03 10^3/uL (0.0-0.06); Absolute Basophil Count 0.05 10^3/uL (0.0-0.2); Absolute Eosinophil Count 0.09 10^3/uL (0.0-0.7); Absolute Lymphocyte Count 2.29 10^3/uL (1.2-3.4); Absolute Monocyte Count 0.79 10^3/uL (0.1-0.8); Absolute Neutrophil Count 4.37 10^3/uL (1.2-6.7); Basophils % 0.7 %; Eosinophils % 1.2 %; HGB 15.3 g/dL (13.5-17.5); Immature Grans % 0.4 %; Lymphocytes % 30.1 %; MCH 30.7 pg (27.0-33.0); MCV 90 fL (80-95); MPV 9.6 fL (8.0-11.0); Monocytes % 10.4 %; Neutrophils % 57.2 %; Platelet Count 220 10^3/uL (130-400); RBC 4.99 10^6/uL (4.36-5.78); RDW 14.1 % (11.8-14.1); RDW-SD 46.8 fL; WBC 7.62 10^3/uL (4.4-10.8)
[2025-01-15 07:17] VITALS: BP 117/81; PULSE 77; RESP 16; TEMP 37.2; O2SAT 94
[2025-01-15] MEDS: amLODIPine 5 MG TAB PO (07:39)
[2025-01-15] MEDS: Docusate Sodium 100 MG CAP PO (07:39)
[2025-01-15] MEDS: Aspirin 81 MG CHEW PO (07:39)
[2025-01-15] MEDS: Lactobacillus Acidophilus CAP 1 CAP PO (07:39)
[2025-01-15] MEDS: Cholecalciferol (Vitamin D3) 1,000 UNIT TAB 1000 UNITS PO (07:40)
[2025-01-15] MEDS: Metoprolol 25 MG TAB PO (07:40)
[2025-01-15] MEDS: Omega-3 Fatty Acids 1000 MG CAP PO (07:40)
[2025-01-15] MEDS: Clopidogrel 75 MG TAB PO (07:40)
[2025-01-15] MEDS: Multivitamin TAB 1 TAB PO (07:40)
[2025-01-15] MEDS: Losartan 50 MG TAB PO (07:41)
[2025-01-15] MEDS: Omeprazole 20 MG CAPCR PO (07:41)
[2025-01-15] MEDS: Rosuvastatin 20 MG TAB 40 MG PO (07:41)
[2025-01-15] MEDS: Tamsulosin 0.4 MG CAPCR 0.8 MG PO (07:41)
[2025-01-15] MEDS: Normal Saline Flush 10 ML SYR IVP (07:43)
--- NOTE | 2025-01-15 09:55 | INITIAL_ITS ---
Date of service: 01/15/25 Time of Service: 09:55 Care Management Initial Assmt Initial Assessment Reason for Hospitalization: NSTEMI Functional Status/Living Situation Patient Presentation: Minesh was awake and sitting up in bed when CM met with him. His Adrianne is sitting in the recliner next to him. Both are pleasant and easy to engage in conversation. He is waiting to transfer to [facility] for a Cardiac Cath. Transfer is pending bed availability. CM will follow. 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 ) Instrumental Activities of Daily Living (ADLs): Independent Medications Medication Management: No Issues/Barriers identified Physical Functioning/Mobility Assistive Device: None Advance Directives Advance Directives: Do you have an Advance Directive: N 01/14/25 10:31 AD On File at [facility]: N 09/19/24 11:20 Date Asked 01/14/25 01/14/25 14:21 AD Date Reviewed COLST On File at [facility] COLST Date Scanned Code Status Resuscitation Status Full Code Insurance Coverage/Financial Issues Insurance: [employer] Care Team Visit Care Team Role Provider Type Lata Harkins Primary Care Provider NON-[facility] STAFF PHYSICIAN Grecia Morgan MD Emergency Provider [facility] STAFF PHYSICIAN Emeka Dietz, Admit Provider [facility] STAFF PHYSICIAN Attending Provider Discharge Anticipated Barriers to Discharge: Medical Status Patient/Family Education Needs: Review discharge instructions, discuss Ask Me Three Transportation: EMS Plan: Transfer to [facility] for a cardiac cath, pending bed availability. EMS will be coordinated by RN caddie supervisor. CM will follow. Social Determinants of Health Screening Social Determinants of Health last assessed: 01/15/25 Will the Patient Participate in the Screening?: Yes Do you worry about having a steady place to live?: no Problems where you live: no known problems In the past 12 months, have you had to go without electric, gas, oil or water in your home?: no Have you or anyone in your house had to go without enough food to eat?: no Has lack of transportation kept you from medical appointments or from doing things needed for daily living?: no Has anyone in your life made you feel unsafe or unsupported?: no How hard is it for you to pay for the very basics like food, housing, medical care, and heating? Would you say it is:: Not hard at all Do you want help finding or keeping work or a job?: I do not need or want help If for any reason you need help with day-to-day activities such as bathing, preparing meals, shopping, managing finances, etc., do you get the help you need?: I don?t need any help How often do you feel lonely or isolated from those around you?: Never Do you speak a language other than Czech at home?: No Does the patient want assistance with any of the above?: No PFSH All Active Problems (Updated 01/14/25 @ 16:17 by Grecia Morgan MD) Chronic anticoagulation (Acute) Acute non-ST elevation myocardial infarction (NSTEMI) (Acute) Vitamin D deficiency (Acute) Erectile dysfunction (Acute) Elevated PSA (Acute) GUNNAR (obstructive sleep apnea) (Chronic) Nonulcer dyspepsia (Acute) Lower urinary tract symptoms (LUTS) (Acute) Pain in pelvis (Acute) Hyperlipidemia (Acute) Essential hypertension (Acute) A-fib (Chronic) Hypothyroidism (Chronic) Hypoalbuminemia (Acute) Medical History Fever Asymptomatic microscopic hematuria Hypogonadism in male Constipation Surgical History S/P hip replacement History of bilateral knee replacement Social History Smoking/Tobacco Use Status: Never Smoking risk assessment performed?: Yes Alcohol Intake: current Alcohol Intake frequency: a few times a month Drug use: Never Substance use type: does not use Housing: house Do you feel safe at home: Yes Do you feel safe in your relationship?: Yes
[2025-01-15 10:17] LABS: Anion Gap 7.8 mmol/L (3-11); BUN 14 mg/dL (7-18); CO2 27.2 mmol/L (21.0-32.0); CREATININE 0.9 mg/dL (0.70-1.30); Calcium 8.8 mg/dL (8.5-10.1); Chloride 105 mmol/L (98-107); Estimated GFR 86.88 (mL/min/1.73m2); Glucose 92 mg/dL (74-106); Magnesium 2.1 mg/dL (1.8-2.4); Potassium 4.1 mmol/L (3.5-5.1); Sodium 140 mmol/L (136-145)
[2025-01-15 10:21] LABS: Troponin I 10428 ng/L (<or=76)
[2025-01-15 10:27] LABS: PTT Activated 102.5 sec (20.6-30.2)
[2025-01-15 10:57] VITALS: BP 98/71; PULSE 83; RESP 18; TEMP 37.4; O2SAT 96
--- NOTE | 2025-01-15 14:13 | NUR.NOTE ---
Nursing Note: was out to the desk asking if pt was getting a bed today at [facility] an hour ago. We called [facility], who could not give any more info at this time, no bed thus far available. Pt's dtr just called and stated that she does not want this to go over 48 hours and is working on a back up plan. She states that she will be calling [facility] to ask them for a bed. HS and Hospitalist notified.
[2025-01-15 15:03] VITALS: BP 110/70; PULSE 83; RESP 16; TEMP 37; O2SAT 94
--- NOTE | 2025-01-15 15:43 | AC.ASSESS ---
Asthma Clinic Visit
--- NOTE | 2025-01-15 15:44 | CHAPLAIN ---
Matt was resting in bed and his , Adrianne, was with him when I visited. 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 Matt and Adrianne are from [place], [place]. He was surprised to learn that he'd had a heart attack, and is now waiting to be transferred to [facility] for a cardiac cath. Both Matt and Adrianne are pleasant and easily engage in conversation. They said they are enjoying serving the adventist in [employer] and liking winter in [place].
--- NOTE | 2025-01-15 16:02 | W.PM.DS.N ---
Date of service: 01/15/25 Time of Service: 16:02 DS: Diagnosis Discharge Diagnosis (1) Acute non-ST elevation myocardial infarction (NSTEMI): Status: Acute (2) A-fib: Status: Chronic (3) Hyperlipidemia: Status: Acute (4) Essential hypertension: Status: Acute Discharge Plan Disposition Patient Disposition: Transfer-Acute Inpatient Care Specific Acute Inpt Facility: [facility] Condition: Stable Discharge Details Reason For Visit: ST elevation; chest pain; elevated Troponin Admit Date/Time: 01/14/25 12:04 Admit Provider: Emeka Dietz Attending Provider: Emeka Dietz Primary Care Provider: Lata Harkins Hospital Course Hospital Course: Per H+P: This is a 79 yo male with pmhx HTN, hyperlipidemia, rate controlled AF on Eliquis, GERD, ED that presents c/o CP. Patient was seen in ICU with present, both are pleasant and good historians. Patient states he woke up yesterday feeling well, attending [employer] but felt poorly after that. Had marked fatigue along with some vague substernal chest pressure. Denies SOB, palpitations, diaphoresis. [place] that this may have been reflux. He did feel better and went cross-country skiing but again noted weakness and fatigue. Again this resolved after the activity. However, the next morning he woke up and felt that all these symptoms had returned, prompting him to present to the ER. At the time of my evaluation, he was completely asymptomatic. Patient had no major issues overnight. Did have an episode of CP (/) earlier in the evening that was self limited, no change on EKG. Was continued on IV heparin overnight. Was also loaded with Plavix (300mg) and continued on 75mg daily. Low dose ASA at 81mg, Metoprolol 25mg BID. Monitor showed AF, rate controlled, c/w his previous history. Labs followed, continued to have troponins trend upwards ([id number] ----> 04184 ---> 24528). Plan today to transfer to [facility] [place]. To be transferred to the service of Dr. Altman. Patient has been kept NPO in anticipation of this procedure. Further w/u and disposition per their services post-procedure. Home Meds and New Rx's Prescriptions: New amlodipine 5 mg Tablet 5 mg PO DAILY Qty: 1 0RF aspirin [Children's Aspirin] 81 mg Tablet,Chewable 81 mg PO DAILY Qty: 1 0RF clopidogrel 75 mg Tablet 75 mg PO DAILY Qty: 1 0RF heparin(porcine) in 0.45% NaCl 25,000 unit/250 mL Parenteral Solution 25,000 unit IV INFUSION Qty: 6000 0RF metoprolol tartrate 25 mg Tablet 25 mg PO BID Qty: 1 0RF Continued docusate sodium 100 mg capsule 100 mg PO DAILY acetaminophen 500 mg capsule 1,000 mg PO ONCE PRN multivitamin Tablet 1 tab PO DAILY amlodipine 5 mg tablet 5 mg PO DAILY cholecalciferol (vitamin D3) 25 mcg (1,000 unit) capsule 25 mcg PO DAILY prasterone (dhea) [DHEA] 25 mg tablet 25 mg PO DAILY Fish Oil 100-160-1,000 mg capsule 1 cap PO DAILY xymochez-ugjer-[id number]-C-jacob-bor [id number] mg tablet 1 tab PO DAILY losartan 50 mg tablet 50 mg PO DAILY psyllium husk 0.52 gram capsule 0.52 g PO DAILY polyethylene glycol 3350 [Miralax] 17 gram/dose powder 17 g PO DAILY omeprazole 20 mg capsule,delayed release(DR/EC) 20 mg PO DAILY Probiotic (B. coagulans) 10 billion cell capsule,delayed release(DR/EC) 1 cell PO DAILY rosuvastatin 40 mg tablet 40 mg PO DAILY tadalafil 5 mg tablet 5 mg PO DAILY tamsulosin 0.4 mg capsule 0.8 mg PO DAILY testosterone cypionate 100 mg/mL oil 40 mg IM Q4W thyroid (pork) [[place] Thyroid] 90 mg tablet 90 mg PO DAILY Discontinued metoprolol tartrate 25 mg tablet 25 mg PO DAILY Co Q-10 300 mg capsule 300 mg PO DAILY Eliquis 5 mg tablet 5 mg PO BID Discharge Instructions Activity:: bedrest Equipment/Supplies:: EMS transfer to [facility] Diet:: currently NPO for procedure Discharge Orders Discharge Orders: Discharge Order (Routine); Ordered 01/15/25 Ordered By: Emeka Dietz DS: Summary Time Spent with Patient providing and/or coordinating discharge services: Greater than 30 minutes Status at Discharge Functional status at discharge: independent ambulation Overall status at discharge: patient is not back to baseline Mental Status: mental status grossly normal Speech and Movement: speech and movement normal Mood: congruent mood Affect: normal affect Quality:SDOH Health Related Social Needs: No Data to Display Exam Psych Mental Status: mental status grossly normal Speech and Movement: speech and movement normal Mood: congruent mood Affect: normal affect DS: Data Vitals/I&O Vitals and I&O: Vital Signs Temperature 37.0 C 01/15/25 15:03 Temperature Source Temporal Artery Scan 01/15/25 15:03 Pulse 83 01/15/25 15:03 Pulse 77 01/14/25 21:02 Respiratory Rate 16 01/15/25 15:03 Respiratory Effort Normal, Non-Labored 01/14/25 14:30 Respiratory Depth Normal 01/14/25 14:30 Respiratory Pattern Normal 01/14/25 14:30 Blood Pressure 110/70 01/15/25 15:03 Blood Pressure Mean 84 01/14/25 21:02 Pulse Oximetry 94 01/15/25 15:03 Oxygen Delivery Method Room Air 01/15/25 15:03 Oxygen Flow Rate 0 01/15/25 15:03 Pain Level 0 01/15/25 07:17 Comment map 89 01/14/25 22:06 Intake & Output 01/14/25 01/15/25 01/15/25 23:59 11:59 23:59 Intake Total 350.833 / 350.833 137.175 / 137.175 Output Total 500 / 500 375 / 575 200 / 575 Balance -149.167 / -149.167 -237.825 / -437.825 -200 / -437.825 Weight 86.1 kg Intake: IV 80.833 / 80.833 137.175 / 137.175 Oral 270 / 270 Output: Urine 500 / 500 375 / 575 200 / 575 Other: Urine Color Straw Yellow Yellow Urine Appearance Clear Clear Clear Urine Odor None Normal Normal Data Completed and Pending Labs on day of discharge: Labs from last 24 hours 01/15/25 01/15/25 01/15/25 16:00 09:16 06:36 WBC 7.62 RBC 4.99 Hgb 15.3 Hct 45.0 MCV 90 MCH 30.7 MCHC 34.0 RDW 14.1 Plt Count 220 MPV 9.6 Immature Gran % 0.4 Neutrophils % 57.2 Lymphocytes % 30.1 Monocytes % 10.4 Eosinophils % 1.2 Basophils % 0.7 Nucleated RBC % 0.0 Absolute Neutrophils 4.37 Absolute Lymphocytes 2.29 Absolute Monocytes 0.79 Absolute Eosinophils 0.09 Absolute Basophils 0.05 APTT Pending 102.5 H* Sodium 140 Potassium 4.1 Chloride 105 Carbon Dioxide 27.2 Anion Gap 7.8 BUN 14 Creatinine 0.9 Est GFR (CKD-EPI 2020) 86.88 Glucose 92 Calcium 8.8 Magnesium 2.1 [place] I [address]441 H* 01/15/25 01/15/25 01/14/25 01:54 00:51 20:44 WBC RBC Hgb Hct MCV MCH MCHC RDW Plt Count MPV Immature Gran % Neutrophils % Lymphocytes % Monocytes % Eosinophils % Basophils % Nucleated RBC % Absolute Neutrophils Absolute Lymphocytes Absolute Monocytes Absolute Eosinophils Absolute Basophils APTT 48.8 H Sodium Potassium Chloride Carbon Dioxide Anion Gap BUN Creatinine Est GFR (CKD-EPI 2020) Glucose Calcium Magnesium Troponin I 01444 H* 64995 H* 01/14/25 17:53 WBC RBC Hgb Hct MCV MCH MCHC RDW Plt Count MPV Immature Gran % Neutrophils % Lymphocytes % Monocytes % Eosinophils % Basophils % Nucleated RBC % Absolute Neutrophils Absolute Lymphocytes Absolute Monocytes Absolute Eosinophils Absolute Basophils APTT 95.2 H* Sodium Potassium Chloride Carbon Dioxide Anion Gap BUN Creatinine Est GFR (CKD-EPI 2020) Glucose Calcium Magnesium Troponin I PFSH All Active Problems (Updated 01/14/25 @ 16:17 by Grecia Morgan MD) Chronic anticoagulation (Acute) Acute non-ST elevation myocardial infarction (NSTEMI) (Acute) Vitamin D deficiency (Acute) Erectile dysfunction (Acute) Elevated PSA (Acute) GUNNAR (obstructive sleep apnea) (Chronic) Nonulcer dyspepsia (Acute) Lower urinary tract symptoms (LUTS) (Acute) Pain in pelvis (Acute) Hyperlipidemia (Acute) Essential hypertension (Acute) A-fib (Chronic) Hypothyroidism (Chronic) Hypoalbuminemia (Acute) Medical History Fever Asymptomatic microscopic hematuria Hypogonadism in male Constipation Surgical History S/P hip replacement History of bilateral knee replacement Social History Smoking/Tobacco Use Status: Never Smoking risk assessment performed?: Yes Alcohol Intake: current Alcohol Intake frequency: a few times a month Drug use: Never Substance use type: does not use Housing: house Do you feel safe at home: Yes Do you feel safe in your relationship?: Yes Time Spent with Patient Time Spent with Patient: <45 minutes Time was spent: preparing to see the patient(eg.review tests), obtaining and/or reviewing separately otained hiistory, ordering medications,tests, procedures, indepentently interpreting results and care coordination
[2025-01-15 16:16] LABS: PTT Activated 77.1 sec (20.6-30.2)
== END 2025-01-15 16:34 | disposition short-term general hospital (02) | DRG 281 ==
LOC: ER 10:32 → ICU 14:21 → MS 21:57
PROVIDERS: Family Medicine; Admitting Provider Hospitalist; Emergency Provider Emergency Medicine; PCP Family Medicine; Responsible Provider Hospitalist; Visit Provider Hospitalist
DX: I21.4 Non-ST elevation (NSTEMI) myocardial infarction (principal); I48.19 Other persistent atrial fibrillation; I10 Essential (primary) hypertension; E87.5 Hyperkalemia; R53.1 Weakness; Z79.01 Long term (current) use of anticoagulants; E55.9 Vitamin D deficiency, unspecified; G47.33 Obstructive sleep apnea (adult) (pediatric); E03.9 Hypothyroidism, unspecified; Z96.653 Presence of artificial knee joint, bilateral
CPT/HCPCS: 00123; 36415; 80048; 80053; 93005; 96365; 96366; 99291; 71045; 83735; 83880; 84443; 84484; 85025; 85610; 85730; 93010; 99221; 99223; 99239; J1644; J3490

== ENCOUNTER → 2025-01-21 13:35 | Outpatient (BNVA) | payer MEDICARE, SELFPAY | PROVIDERS: PCP Family Medicine; Referring Provider Family Medicine; Visit Provider Urology | DX: N42.89 Other specified disorders of prostate (principal); R97.20 Elevated prostate specific antigen [PSA] | CPT/HCPCS: 99213 ==

== ENCOUNTER 2025-01-30 11:09 | Outpatient (RCR) | payer MEDICARE, SELFPAY ==
--- NOTE | 2025-01-30 11:00 | RT.EKG_ITS ---
APPROVED REPORT Exam: Resting ECG Reason for Exam: Baseline Patient Location: O HR:90 bpm ECG Measurements Heart Rate 90 AXIS NE [id number] P [id number] QRSd 107 QRS 26 QT 351 T 29 QTc 430 Conclusion Atrial fibrillation...V-rate 66-106, irreg A-activity Artifact
== END 2025-02-18 23:59 | disposition home or self-care (01) ==
LOC: CR 11:09
PROVIDERS: PCP Family Medicine; Visit Provider Internal Medicine Cardiovascular Disease
DX: I21.4 Non-ST elevation (NSTEMI) myocardial infarction (principal); Z51.89 Encounter for other specified aftercare
CPT/HCPCS: S9472

== ENCOUNTER 2025-02-18 08:07 | Outpatient (RCR) | payer MEDICARE, SELFPAY | END 2025-02-18 23:59 | disposition home or self-care (01) | LOC: CR 08:07 | PROVIDERS: PCP Family Medicine; Visit Provider Internal Medicine Cardiovascular Disease | DX: I21.4 Non-ST elevation (NSTEMI) myocardial infarction (principal); Z51.89 Encounter for other specified aftercare | CPT/HCPCS: S9472 ==

== ENCOUNTER 2025-03-11 09:18 | Outpatient (RCR) | payer MEDICARE, SELFPAY | END 2025-03-20 23:59 | disposition home or self-care (01) | LOC: CR 09:18 | PROVIDERS: PCP Family Medicine; Visit Provider Internal Medicine Cardiovascular Disease | DX: I21.4 Non-ST elevation (NSTEMI) myocardial infarction (principal); Z95.2 Presence of prosthetic heart valve; Z51.89 Encounter for other specified aftercare; I10 Essential (primary) hypertension; Z79.01 Long term (current) use of anticoagulants; I48.91 Unspecified atrial fibrillation | CPT/HCPCS: S9472 ==

== ENCOUNTER 2025-03-22 10:01 | Outpatient (RCR) | payer MEDICARE, SELFPAY | END 2025-04-20 23:59 | disposition home or self-care (01) | LOC: CR 10:01 | PROVIDERS: PCP Family Medicine; Visit Provider Internal Medicine Cardiovascular Disease | DX: I21.4 Non-ST elevation (NSTEMI) myocardial infarction (principal); Z95.5 Presence of coronary angioplasty implant and graft; Z51.89 Encounter for other specified aftercare | CPT/HCPCS: S9472 ==

== ENCOUNTER 2025-04-19 09:14 | Outpatient (RCR) | payer MEDICARE, SELFPAY | END 2025-04-20 23:59 | disposition home or self-care (01) | LOC: CR 09:14 | PROVIDERS: PCP Family Medicine; Visit Provider Internal Medicine Cardiovascular Disease | DX: I21.4 Non-ST elevation (NSTEMI) myocardial infarction (principal); Z95.2 Presence of prosthetic heart valve; Z51.89 Encounter for other specified aftercare | CPT/HCPCS: S9472 ==

== ENCOUNTER 2025-05-20 09:00 | Outpatient (RCR) | payer MEDICARE, SELFPAY | END 2025-05-20 23:59 | disposition home or self-care (01) | LOC: CR 09:00 | PROVIDERS: PCP Family Medicine; Visit Provider Internal Medicine Cardiovascular Disease | DX: I21.4 Non-ST elevation (NSTEMI) myocardial infarction (principal); Z95.5 Presence of coronary angioplasty implant and graft; Z51.89 Encounter for other specified aftercare | CPT/HCPCS: S9472 ==

== ENCOUNTER 2025-05-29 09:00 | Outpatient (RCR) | payer MEDICARE, SELFPAY | END 2025-06-20 23:59 | disposition home or self-care (01) | LOC: CR 09:00 | PROVIDERS: PCP Family Medicine; Visit Provider Internal Medicine Cardiovascular Disease | DX: I21.4 Non-ST elevation (NSTEMI) myocardial infarction (principal); Z95.5 Presence of coronary angioplasty implant and graft; Z51.89 Encounter for other specified aftercare | CPT/HCPCS: S9472 ==

== ENCOUNTER 2025-06-18 13:00 | Outpatient (RCR) | payer SELFPAY ==
[2025-06-04 14:13] VITALS: BP 120/63; PULSE 83
[2025-06-06 13:06] VITALS: BP 119/63; PULSE 82; O2SAT 96
[2025-06-11 14:17] VITALS: BP 118/68; PULSE 81
[2025-06-13 13:19] VITALS: BP 144/69; PULSE 68
[2025-06-18 14:53] VITALS: BP 118/66; PULSE 82
== END 2025-06-20 23:59 | disposition home or self-care (01) ==
LOC: CR 13:00
PROVIDERS: PCP Family Medicine; Visit Provider Internal Medicine Cardiovascular Disease
DX: R69 Illness, unspecified (principal)

== ENCOUNTER 2025-07-06 15:46 | Emergency (ER) | payer MEDICARE, SELFPAY ==
[2025-07-06 15:49] VITALS: BP 125/69; PULSE 79; RESP 16; TEMP 37; O2SAT 98
[2025-07-06] MEDS: Cellulose,Oxidized 2X3 PKT 1 EACH MC (16:10)
--- NOTE | 2025-07-06 22:10 | W.ED.GENAD ---
Discharge Plan Disposition Patient Disposition: Home Discharge Details Clinical Impression: Abrasion Primary Care Provider: Lata Harknis ED Provider: Radha Dang Home Meds and New Rx's Prescriptions: Continued docusate sodium 100 mg capsule 100 mg PO DAILY acetaminophen 500 mg capsule 1,000 mg PO ONCE PRN multivitamin Tablet 1 tab PO DAILY amlodipine 5 mg tablet 5 mg PO DAILY cholecalciferol (vitamin D3) 25 mcg (1,000 unit) capsule 25 mcg PO DAILY prasterone (DHEA) [DHEA] 25 mg tablet 25 mg PO DAILY Fish Oil 100-160-1,000 mg capsule 1 cap PO DAILY [id number]-bor [id number] mg tablet 1 tab PO DAILY losartan 50 mg tablet 50 mg PO DAILY psyllium husk 0.52 gram capsule 0.52 g PO DAILY polyethylene glycol 3350 [Miralax] 17 gram/dose powder 17 g PO DAILY omeprazole 20 mg capsule,delayed release(DR/EC) 20 mg PO DAILY Probiotic (B. coagulans) 10 billion cell capsule,delayed release(DR/EC) 1 cell PO DAILY rosuvastatin 40 mg tablet 40 mg PO DAILY tadalafil 5 mg tablet 5 mg PO DAILY tamsulosin 0.4 mg capsule 0.8 mg PO DAILY testosterone cypionate 100 mg/mL oil 40 mg IM Q4W thyroid (pork) [[place] Thyroid] 90 mg tablet 90 mg PO DAILY amlodipine 5 mg Tablet 5 mg PO DAILY Qty: 1 0RF clopidogrel 75 mg Tablet 75 mg PO DAILY Qty: 1 0RF metoprolol tartrate 25 mg Tablet 25 mg PO BID Qty: 1 0RF Eliquis 5 mg tablet 5 mg PO BID Patient Comments: TAKE ONE TABLET BY MOUTH TWICE A DAY Discharge Instructions Additional Instructions: keep wound covered until the morning remove dressing tomorrow keep the surgicel (hemostat material on) you may trim the hemostat material, try to leave it in place with the clot or it will bleed you may allow water on surgicel, however it may come off on its own (please don't scrub the area) reapply dressing as needed if this starts bleeding again, place pressure dressing with gauze and arabella wrap and allow to sit with cool compress for 20 minutes Referrals: Lata Harkins [Primary Care Provider, Medicine] Discharge Data Discharge Date/Time-TO BE ENTERED AT DEPARTURE: 07/06/25 17:02 HPI General Date/Time Provider Initiated Documentation: 07/06/25 15:58. HPI Narrative: 79-year-old male injured his leg on a trash bag corner at 1300 hours. No foreign body felt, tetanus up to date. On anticoagulation, unable to control bleeding. Related Data Home Medications ?Medication ?Instructions ?Recorded ?Confirmed Bacillus coagulans 10 billion cell 1 cell PO DAILY 09/19/24 07/06/25 capsule,delayed release (Probiotic (B. coagulans)) acetaminophen 500 mg capsule 1,000 mg PO ONCE PRN 09/19/24 07/06/25 amlodipine 5 mg tablet 5 mg PO DAILY 09/19/24 07/06/25 cholecalciferol (vitamin D3) 25 25 mcg PO DAILY 09/19/24 07/06/25 mcg (1,000 unit) capsule glucosamine 750 cv-[id number] 1 tab PO DAILY 09/19/24 07/06/25 no1 625 mg-C 30 mg-jacob 1 mg tablet losartan 50 mg tablet 50 mg PO DAILY 09/19/24 07/06/25 multivitamin 1 tab PO DAILY 09/19/24 07/06/25 omega 0-cqj-joy-fish oil 100 1 cap PO DAILY 09/19/24 07/06/25 mg-160 mg-1,000 mg capsule (Fish Oil) omeprazole 20 mg capsule,delayed 20 mg PO DAILY 09/19/24 07/06/25 release polyethylene glycol 3350 17 17 g PO DAILY 09/19/24 07/06/25 gram/dose oral powder (Miralax) prasterone (DHEA) 25 mg tablet 25 mg PO DAILY 09/19/24 07/06/25 (DHEA) psyllium husk 0.52 gram capsule 0.52 g PO DAILY 09/19/24 07/06/25 rosuvastatin 40 mg tablet 40 mg PO DAILY 09/19/24 07/06/25 tadalafil 5 mg tablet 5 mg PO DAILY 09/19/24 07/06/25 tamsulosin 0.4 mg capsule 0.8 mg PO DAILY 09/19/24 07/06/25 testosterone cypionate 100 mg/mL 40 mg IM Q4W 09/19/24 07/06/25 intramuscular oil thyroid (pork) 90 mg tablet 90 mg PO DAILY 09/19/24 07/06/25 ([place] Thyroid) docusate sodium 100 mg capsule 100 mg PO DAILY 12/28/24 07/06/25 amlodipine 5 mg tablet 5 mg PO DAILY #1 tab 01/15/25 07/06/25 clopidogrel 75 mg tablet 75 mg PO DAILY #1 tab 01/15/25 07/06/25 metoprolol tartrate 25 mg tablet 25 mg PO BID #1 tab 01/15/25 07/06/25 apixaban 5 mg tablet (Eliquis) 5 mg PO BID 07/06/25 07/06/25 Previous Rx's ?Medication ?Instructions ?Recorded amlodipine 5 mg tablet 5 mg PO DAILY #1 tab 01/15/25 clopidogrel 75 mg tablet 75 mg PO DAILY #1 tab 01/15/25 metoprolol tartrate 25 mg tablet 25 mg PO BID #1 tab 01/15/25 Allergies Allergy/AdvReac Type Severity Reaction Status Date / Time atorvastatin (From Lipitor) Allergy Other (See Verified 07/06/25 15:54 Comment) General Stated Complaint: Laceration MARIA ELENA: 4 Exam Narrative Exam Narrative: General Appearance: Alert, oriented, no acute distress. Vital signs: Within normal limits. HEENT: Within normal limits. Respiratory: Within normal limits. Skin: 1 cm superficial abrasion on lateral thigh, actively bleeding, no foreign body, very superficial, no laceration. Neurological: Normal. Course Vital Signs Vital signs: Vital Signs Temperature 37.0 C 07/06/25 15:49 Pulse 79 07/06/25 15:49 Respiratory Rate 16 07/06/25 15:49 Blood Pressure 125/69 07/06/25 15:49 Pulse Oximetry 98 07/06/25 15:49 Temperature 37.0 C 07/06/25 15:49 Pulse 79 07/06/25 15:49 Respiratory Rate 16 07/06/25 15:49 Blood Pressure 125/69 07/06/25 15:49 Pulse Oximetry 98 07/06/25 15:49 Medical Decision Making Procedure Performed Wound cleansing and application of Surgicel Technique Wound cleansed and Surgicel applied 79-year-old male with superficial abrasion on lateral thigh, actively bleeding due to anticoagulation. ED Course: - Wound cleansed - Surgicel applied - Coagulation achieved - Observed for 10 minutes, no continued bleeding Final Assessment: Wound cleansed, Surgicel applied, coagulation achieved. Observed for 10 minutes, no continued bleeding. Clinical Impression: Abrasion secondary to anticoagulation Disposition: Discharge home, stable, return if bleeding, infection signs, worsening condition, or new concerns Follow-Up: Keep Surgicel in place for 3 days Patient Education: Return if bleeding, infection signs, worsening condition, or new concerns PFSH All Active Problems (Updated 07/06/25 @ 16:34 by YANNI Forebs) Abrasion (Acute) Chronic anticoagulation (Acute) Acute non-ST elevation myocardial infarction (NSTEMI) (Acute) Vitamin D deficiency (Acute) Erectile dysfunction (Acute) Elevated PSA (Acute) GUNNAR (obstructive sleep apnea) (Chronic) Nonulcer dyspepsia (Acute) Lower urinary tract symptoms (LUTS) (Acute) Pain in pelvis (Acute) Hyperlipidemia (Acute) Essential hypertension (Acute) A-fib (Chronic) Hypothyroidism (Chronic) Hypoalbuminemia (Acute) Medical History Fever Asymptomatic microscopic hematuria Hypogonadism in male Constipation Surgical History S/P hip replacement History of bilateral knee replacement Social History Smoking/Tobacco Use Status: Never Smoking risk assessment performed?: Yes Alcohol Intake: current Alcohol Intake frequency: a few times a month Drug use: Never Substance use type: does not use Housing: house Do you feel safe at home: Yes Do you feel safe in your relationship?: Yes
== END 2025-07-06 17:02 | disposition home or self-care (01) ==
PROVIDERS: Emergency Provider Physician Assistant; PCP Family Medicine
DX: S70.311A Abrasion, right thigh, initial encounter (principal); X58.XXXA Exposure to other specified factors, initial encounter
CPT/HCPCS: 99282; 99283

== ENCOUNTER 2025-07-09 13:00 | Outpatient (RCR) | payer SELFPAY ==
[2025-06-21 00:14] VITALS: BP 118/66; PULSE 82
[2025-06-25 13:50] VITALS: BP 138/72; PULSE 80
[2025-06-27 13:45] VITALS: BP 133/73; PULSE 79
[2025-07-09 13:21] VITALS: BP 137/69; PULSE 83
== END 2025-07-21 23:59 | disposition home or self-care (01) ==
LOC: CR 13:00
PROVIDERS: PCP Family Medicine; Visit Provider Internal Medicine Cardiovascular Disease
DX: R69 Illness, unspecified (principal)

== ENCOUNTER 2025-09-18 21:07 | Outpatient (REF) | payer MEDICARE, SELFPAY ==
[2025-09-18 21:46] LABS: HCT 42.7 % (40.0-50.0); HGB 13.8 g/dL (13.5-17.5); MCH 29.8 pg (27.0-33.0); MCHC 32.3 % (32.0-36.0); MCV 92 fL (80-95); MPV 9.8 fL (8.0-11.0); Platelet Count 195 10^3/uL (130-400); RBC 4.63 10^6/uL (4.36-5.78); RDW 14.0 % (11.8-14.1); RDW-SD 47.5 fL; WBC 5.89 10^3/uL (4.4-10.8)
[2025-09-18 22:16] LABS: Hemoglobin A1C 5.8 % (<5.7)
[2025-09-18 22:28] LABS: ALT 33 U/L (16-63); AST 19 U/L (15-37); Albumin 3.7 g/dL (3.4-5.0); Alkaline Phosphatase 78 U/L (46-116); Anion Gap 6.5 mmol/L (3-11); BUN 18 mg/dL (7-18); Bilirubin, Total 0.5 mg/dL (0.2-1.0); CO2 30.5 mmol/L (21.0-32.0); Calcium 8.8 mg/dL (8.5-10.1); Chloride 103 mmol/L (98-107); Cholesterol 176 mg/dL (<200); Glucose 111 mg/dL (74-106); HDL Cholesterol 62 mg/dL (>or=40); Potassium 4.7 mmol/L (3.5-5.1); Sodium 140 mmol/L (136-145); TSH 1.70 uIU/mL (0.36-3.74); Total Protein 6.6 g/dL (6.4-8.2)
[2025-09-19 17:56] LABS: T3,Free 4.1 pg/mL (2.8-5.3)
[2025-09-25 09:30] LABS: 25-Hydroxy D Total 69 ng/mL
[2025-09-26 12:21] LABS: Testosterone, Free 35.1 ng/dL (3.08-11.3)
== END 2025-09-18 21:08 | disposition home or self-care (01) ==
LOC: LBN 21:07
PROVIDERS: PCP Family Medicine; Visit Provider Obstetrics & Gynecology Gynecology
DX: R63.5 Abnormal weight gain (principal); R53.83 Other fatigue; E03.9 Hypothyroidism, unspecified; E29.9 Testicular dysfunction, unspecified; E55.9 Vitamin D deficiency, unspecified; E78.2 Mixed hyperlipidemia; Z13.1 Encounter for screening for diabetes mellitus; R97.20 Elevated prostate specific antigen [PSA]
CPT/HCPCS: 80053; 80061; 82306; 82627; 84402; 84403; 85027; 83036; 84154; 84270; 84439; 84443; 84481

== ENCOUNTER 2025-09-19 13:00 | Outpatient (RCR) | payer SELFPAY ==
[2025-08-27 14:07] VITALS: BP 124/74; PULSE 63
[2025-09-03 13:19] VITALS: BP 132/69; PULSE 78
[2025-09-10 13:09] VITALS: BP 136/72; PULSE 74
[2025-09-13 12:58] VITALS: BP 141/71; PULSE 87
[2025-09-17 13:19] VITALS: BP 145/76; PULSE 85
[2025-09-19 13:14] VITALS: BP 145/70; PULSE 82; O2SAT 95
== END 2025-09-20 23:59 | disposition home or self-care (01) ==
LOC: CR 13:00
PROVIDERS: PCP Family Medicine; Visit Provider Internal Medicine Cardiovascular Disease
DX: R69 Illness, unspecified (principal)

== ENCOUNTER 2025-10-10 13:00 | Outpatient (RCR) | payer SELFPAY ==
[2025-09-21 00:02] VITALS: BP 145/70; PULSE 82
[2025-09-24 13:33] VITALS: BP 134/69; PULSE 89
[2025-09-26 13:15] VITALS: BP 138/65; PULSE 89
[2025-10-01 13:12] VITALS: BP 128/73; PULSE 81
[2025-10-03 13:26] VITALS: BP 145/77; PULSE 86
[2025-10-08 13:20] VITALS: BP 126/66; PULSE 90
[2025-10-10 14:19] VITALS: BP 135/74; PULSE 82
== END 2025-10-20 23:59 | disposition home or self-care (01) ==
LOC: CR 13:00
PROVIDERS: PCP Family Medicine; Visit Provider Internal Medicine Cardiovascular Disease
DX: R69 Illness, unspecified (principal)

== ENCOUNTER 2025-11-05 13:00 | Outpatient (RCR) | payer SELFPAY ==
[2025-10-21 00:14] VITALS: BP 135/74; PULSE 82
== END 2025-11-20 23:59 | disposition home or self-care (01) ==
LOC: CR 13:00
PROVIDERS: PCP Family Medicine; Visit Provider Internal Medicine Cardiovascular Disease
DX: R69 Illness, unspecified (principal)